=== PATIENT | male | born 1990 | race Caucasian/White ===

== ENCOUNTER 2019-09-11 17:45 | Emergency (ER) | payer SELFPAY ==
[~2019-09-11] VITALS: Ht 165.1 cm; Wt 73.0 kg
[2019-09-11] MEDS ORDERED: INCARCERATION (17:47)
== END 2019-09-11 17:50 ==
LOC: ER 17:45
DX: Z02.89 Encounter for other administrative examinations (principal); F17.200 Nicotine dependence, unspecified, uncomplicated
CPT/HCPCS: 99283

== ENCOUNTER 2022-11-29 04:27 | Emergency (ER) | payer OTHER ==
[~2022-11-29] VITALS: Ht 165.1 cm; Wt 99.8 kg
[~2022-11-29 04:27] MED LIST: CEPH500 PO; IBUP800 PO; INCARCERATION
[2022-11-29] MEDS ORDERED: CLEOCIN T60 G1 TOP (06:37)
[2022-11-29] MEDS ORDERED: Mupirocin22 GM TOP (06:37)
== END 2022-11-29 06:47 | disposition home or self-care (01) ==
LOC: ER 04:27
DX: L73.2 Hidradenitis suppurativa (principal); F17.210 Nicotine dependence, cigarettes, uncomplicated
CPT/HCPCS: 99283

== ENCOUNTER 2024-02-15 19:55 | Emergency (ER) | payer OTHER ==
[~2024-02-15] VITALS: Ht 160 cm; Wt 81.7 kg
[~2024-02-15 19:55] MED LIST changes: +CLEOCIN T60 G1 TOP; +Mupirocin22 GM TOP
[2024-02-15 19:58] VITALS: BP 158/85
[2024-02-19 05:57] LABS: APTIMA MEDIA TYPE Urine; C. TRACHOMATIS BY TMA Negative (Negative); N. GONORRHOEAE BY TMA Negative (Negative); SPECIMEN SOURCE Urine
== END 2024-02-15 20:08 | disposition home or self-care (01) ==
LOC: ER 19:55
PROVIDERS: Physician Assistant
DX: N50.89 Other specified disorders of the male genital organs (principal); Z11.3 Encounter for screening for infections with a predominantly sexual mode of transmission; Z79.899 Other long term (current) drug therapy; F17.210 Nicotine dependence, cigarettes, uncomplicated
CPT/HCPCS: 87491; 87591; 99283

== ENCOUNTER 2024-04-01 10:45 | Emergency (ER) | payer OTHER ==
[~2024-04-01] VITALS: Ht 162.6 cm; Wt 83.9 kg
[2024-04-01 10:53] VITALS: BP 138/88
== END 2024-04-01 11:22 | disposition home or self-care (01) ==
LOC: ER 10:45
DX: F43.20 Adjustment disorder, unspecified (principal); Z79.2 Long term (current) use of antibiotics
CPT/HCPCS: 99282

== ENCOUNTER → 2024-06-10 | Outpatient (CLI) | payer OTHER ==
[2024-06-10 14:58] LABS: Campylobacter Sp Not Detected (NOT DETECT); Cryptosporidium Detected (NOT DETECT); E. Coli O157 Not Detected (NOT DETECT); Enteroaggregative E. coli-EAEC Not Detected (NOT DETECT); Enteropathogenic E. coli-EPEC Not Detected (NOT DETECT); Enterotoxigenic E. coli-ETEC Not Detected (NOT DETECT); Plesiomonas Shigelloides Not Detected (NOT DETECT); Salmonella Sp Not Detected (NOT DETECT); Shiga Toxin-prod E. coli-STEC Not Detected (NOT DETECT); Shigella/Enteroin E. coli-EIEC Not Detected (NOT DETECT); Vibrio Cholerae Not Detected (NOT DETECT); Vibrio Sp Not Detected (NOT DETECT); Yersinia Enterocolitica Not Detected (NOT DETECT)
[2024-06-10 14:59] LABS: Adenovirus F 40/41 Not Detected (NOT DETECT); Astrovirus Not Detected (NOT DETECT); Cyclospora Cayetanensis Not Detected (NOT DETECT); Entamoeba Histolytica Not Detected (NOT DETECT); Giardia Lamblia Not Detected (NOT DETECT); Norovirus GI/GII Not Detected (NOT DETECT); Rotavirus A Not Detected (NOT DETECT); Sapovirus Not Detected (NOT DETECT)
== END ==
LOC: LAB 10:52 → LAB SHORT 10:52
PROVIDERS: Family Medicine
DX: R19.7 Diarrhea, unspecified (principal)
CPT/HCPCS: 87507

== ENCOUNTER 2024-09-29 11:50 | Emergency (ER) | payer OTHER ==
[~2024-09-29] VITALS: Ht 165.1 cm; Wt 88.3 kg
[2024-09-29 12:04] VITALS: BP 129/80
== END 2024-09-29 13:17 | disposition home or self-care (01) ==
LOC: ER 11:50
DX: R68.2 Dry mouth, unspecified (principal); F15.10 Other stimulant abuse, uncomplicated; F17.210 Nicotine dependence, cigarettes, uncomplicated; Z77.098 Contact with and (suspected) exposure to other hazardous, chiefly nonmedicinal, chemicals
CPT/HCPCS: 99282

== ENCOUNTER → 2025-01-13 | Outpatient (CLI) | payer OTHER ==
[2025-01-13 10:54] LABS: BASOPHILS ABSOLUTE AUTO 0.02 K/mm3 (0.00-0.23); BASOPHILS PERCENT AUTO 0 % (0-2); EOSINOPHILS ABSOLUTE AUTO 0.13 K/mm3 (0.00-0.68); EOSINOPHILS PERCENT AUTO 2 % (0-6); Hematocrit 45.4 % (37.0-53.0); Hemoglobin 14.9 g/dL (13.5-17.5); IMMATURE GRAN ABSOLUTE AUTO 0.03 K/mm3 (0.00-0.10); IMMATURE GRAN PERCENT AUTO 0 % (0-1); LYMPHOCYTES ABSOLUTE AUTO 1.62 K/mm3 (0.84-5.20); LYMPHOCYTES PERCENT AUTO 23 % (21-46); MONOCYTES ABSOLUTE AUTO 0.51 K/mm3 (0.16-1.47); MONOCYTES PERCENT AUTO 7 % (4-13); Mean Corpuscular HGB 27.7 pg (26.0-34.0); Mean Corpuscular HGB Conc 32.8 g/dL (31.5-36.5); Mean Corpuscular Volume 85 fL (80-100); Mean Platelet Volume 9.6 fL (9.1-12.4); NEUTROPHILS ABSOLUTE AUTO 4.75 K/mm3 (1.96-9.15); NEUTROPHILS PERCENT AUTO 67 % (41-73); Platelet Count 367 K/mm3 (150-400); Red Blood Cell Count 5.37 M/mm3 (4.30-5.90); White Blood Cell Count 7.06 K/mm3 (4.00-11.30)
[2025-01-13 11:12] LABS: Albumin, Blood 3.6 g/dL (3.4-5.0); Albumin/Globulin Ratio 0.9 (0.8-1.8); Bilirubin, Total 0.4 mg/dL (0.1-1.0); Bun/Creatinine Ratio 22.4 (12.0-20.0); Calcium, Blood 9.5 mg/dL (8.5-10.1); Creatinine, Blood 0.85 mg/dL (0.60-1.20); Potassium, Blood 4.2 mmol/L (3.5-5.5); Total Protein, Blood 7.6 g/dL (6.4-8.2)
== END | disposition home or self-care (01) ==
LOC: LAB SHORT 10:49 → LAB 10:49
PROVIDERS: Physician Assistant
DX: R10.9 Unspecified abdominal pain (principal)
CPT/HCPCS: 80053; 83690; 85025

== ENCOUNTER 2025-08-13 21:57 | Emergency (ER) | payer OTHER ==
[~2025-08-13] VITALS: Ht 165.1 cm; Wt 91.6 kg
[2025-08-13] MEDS ORDERED: BUPROPION XL150 M1 PO (23:05)
[2025-08-13] MEDS ORDERED: Prozac40 MG PO (23:06)
[2025-08-13] MEDS ORDERED: QUETIAPINE FUMA5012 PO (23:06)
[2025-08-13 23:41] LABS: BASOPHILS ABSOLUTE AUTO 0.05 K/mm3 (0.00-0.23); BASOPHILS PERCENT AUTO 0 % (0-2); EOSINOPHILS ABSOLUTE AUTO 0.04 K/mm3 (0.00-0.68); EOSINOPHILS PERCENT AUTO 0 % (0-6); Hematocrit 41.1 % (37.0-53.0); Hemoglobin 13.6 g/dL (13.5-17.5); IMMATURE GRAN ABSOLUTE AUTO 0.03 K/mm3 (0.00-0.10); IMMATURE GRAN PERCENT AUTO 0 % (0-1); LYMPHOCYTES ABSOLUTE AUTO 1.72 K/mm3 (0.84-5.20); LYMPHOCYTES PERCENT AUTO 14 % (21-46); MONOCYTES ABSOLUTE AUTO 0.46 K/mm3 (0.16-1.47); MONOCYTES PERCENT AUTO 4 % (4-13); Mean Corpuscular HGB Conc 33.1 g/dL (31.5-36.5); Mean Corpuscular Volume 85 fL (80-100); NEUTROPHILS ABSOLUTE AUTO 10.43 K/mm3 (1.96-9.15); NEUTROPHILS PERCENT AUTO 82 % (41-73); NRBC ABSOLUTE 0.00 K/mm3 (0.00-0.02); NRBC Auto 0.0 /100 WBC (0.0-0.2); Platelet Count 381 K/mm3 (150-400); RDW Coefficient Variation 12.5 % (11.7-14.2); RDW Standard Deviation 38.7 fL (35.1-46.3)
[2025-08-13 23:43] LABS: Source, Urine Clean Catch
[2025-08-13 23:47] LABS: Bilirubin, Urine Neg (Neg); Color, Urine Yellow (P-Yellow); Glucose Qualitative, Urine Neg (Neg); Ketones, Urine Neg (Neg); Leukocyte Esterase, Urine Neg (Neg); Protein, Urine Neg (Neg); Specific Gravity, Urine 1.010 (1.003-1.022); Urobilinogen, Urine NORM (Normal)
[2025-08-13 23:55] LABS: Red Blood Cells, Urine 0-2 /hpf (0-2); White Blood Cells, Urine 0-2 /hpf (0-5)
[2025-08-14 00:03] LABS: Alanine Aminotransfer (ALT/SGP 34.0 U/L (12-78); Albumin, Blood 3.9 g/dL (3.4-5.0); Albumin/Globulin Ratio 1.1 (0.8-1.8); Anion Gap 8.0 mmol/L (3-11); Aspartate Aminotrans (AST/SGOT 21.0 U/L (12-37); Bilirubin, Total 0.5 mg/dL (0.1-1.0); Blood Urea Nitrogen 22.0 mg/dL (8-24); CO2, Blood 27.0 mmol/L (21-32); Calcium, Blood 8.5 mg/dL (8.5-10.1); Chloride, Blood 105.0 mmol/L (98-108); Creatinine, Blood 0.74 mg/dL (0.60-1.20); Globulin, Blood 3.7 g/dL (2.2-4.0); Glucose, Blood 109.0 mg/dL (70-99); Potassium, Blood 3.4 mmol/L (3.5-5.5); Sodium, Blood 137.0 mmol/L (136-145); Total Protein, Blood 7.6 g/dL (6.4-8.2)
[2025-08-14] MEDS ORDERED: Lidocaine HCl 4% Cream 5 GM TOP ONE (00:35)
[2025-08-14 01:50] VITALS: BP 126/80
== END 2025-08-13 23:07 | disposition home or self-care (01) ==
LOC: ER 21:57
PROVIDERS: Student in an Organized Health Care Education/Training Program
DX: L02.412 Cutaneous abscess of left axilla (principal); R53.1 Weakness; F43.10 Post-traumatic stress disorder, unspecified; Z79.899 Other long term (current) drug therapy
CPT/HCPCS: 10060; 80053; 81001; 85025; 93005; 93010; 99284-25; A9270